=== PATIENT | female | born 2000 | race Caucasian/White ===

== ENCOUNTER 2022-06-07 12:29 | Inpatient (IN) | payer OTHER ==
[~2022-06-07] VITALS: Ht 162.6 cm; Wt 59.0 kg
[~2022-06-07 12:29] MED LIST: FEROSUL325 MG PO; PRENATAL FORMU1 EACH PO
[2022-06-07 13:20] LABS: HCT 37.7 % (37.0-47.0); MCHC 31.8 g/dL (32.0-36.0); MCV 81.8 fL (78.0-100.0); MPV 10.2 fL (6.0-9.5); RBC 4.61 M/uL (4.20-5.40); WBC 11.7 K/uL (4.0-10.5)
[2022-06-07 13:22] LABS: BILIRUBIN NEGATIVE (NEGATIVE); BLOOD 3+ Ery/uL (NEGATIVE); COLOR YELLOW (YELLOW); GLUCOSE (U) NORMAL (NORMAL); LEUKOCYTES 3+ Leu/uL (NEGATIVE); NITRITE NEGATIVE (NEGATIVE); PROTEIN NEGATIVE (NEGATIVE)
[2022-06-07 13:24] LABS: CLARITY HAZY (CLEAR)
[2022-06-07 13:26] LABS: AMPHETAMINES NEGATIVE (NEGATIVE); BARBITURATES NEGATIVE (NEGATIVE); ECSTASY (MDMA) NEGATIVE (NEGATIVE); MARIJUANA (THC) NEGATIVE (NEGATIVE); METHADONE NEGATIVE (NEGATIVE); OPIATES NEGATIVE (NEGATIVE); OXYCODONE NEGATIVE (NEGATIVE)
[2022-06-07 13:28] LABS: BACTERIA 4+; SQUAMOUS EPITHELIAL CELLS >50; URINARY WBC TNTC
[2022-06-07 17:06] LABS: ALBUMIN 2.8 g/dL (3.4-5.0); BILIRUBIN - TOTAL 0.4 mg/dL (0.2-1.0); BUN/CREAT RATIO (CALC) 17.6 RATIO; CREATININE 0.51 mg/dL (0.51-0.95); GLOBULIN (CALCULATION) 4.6 g/dL; POTASSIUM 3.7 mmol/L (3.5-5.1); TOTAL PROTEIN 7.4 g/dL (6.4-8.2); URIC ACID 5.3 mg/dL (2.6-6.2)
[2022-06-07 17:31] LABS: PROTEIN:CREATININE 0.27 RATIO; URINE CREATININE 119.46 mg/dL (29.00-226.00); URINE TOTAL PROTEIN-RANDOM 33.2 mg/dL (<11.9)
[2022-06-08 07:37] LABS: HCT 30.5 % (37.0-47.0); HGB 9.8 g/dL (12.5-16.0)
[2022-06-09] MEDS ORDERED: IBUPROFEN800 MG PO (08:22)
[2022-06-09] MEDS ORDERED: COLACE100 MG PO (08:23)
--- NOTE | 2022-06-09 08:26 | NUR ---
PER ESTHER MOREJON, [facility] [employer] SUPERVISOR, THE FOLLOWING OCCURRED: Note for Bebeto Harrell 12.04.00 mastic worker received consult for OB Patient. CM interviewed and provided resources. OB unit can provide car seat if the baby does go home. CM provided guidance on WIC and HANDS. CPS report was completed - below: [id number] Sponge Buffer received consult for lack of resources, no car seat, positive drug screen and hx of meth use and CPS for delivering Patient. CM interviewed patient who reported that she has a one and two year old that she lost custody of in [place] due to drugs and mental health - both children are with her mother. She has no care until the last two weeks of to which she tested positive for THC. She has nothing prepared for the to include no car seat, clothes or other necessities. She reports that she and her boyfriend live with one of her boyfriend's coworkers and that is where she plans to take the . The boyfriend has requested a paternity test. There is a high risk of abuse neglect due to recent hx of meth use and removal of other two children. Patient reports her mother's name is Melba Recinos [phone].
== END 2022-06-09 17:59 | disposition home or self-care (01) | DRG 806 ==
LOC: FOB 12:29
PROVIDERS: ADMIT Obstetrics & Gynecology
PROC: 10E0XZZ Delivery of Products of Conception, External Approach (ICD-10-PCS; principal; 2022-06-07)
DX: O99.02 Anemia complicating childbirth (principal); O99.324 Drug use complicating childbirth; Z37.0 Single live birth; O25.2 Malnutrition in childbirth; Z3A.39 39 weeks gestation of pregnancy; Z28.310 Unvaccinated for COVID-19; F12.90 Cannabis use, unspecified, uncomplicated; O99.334 Smoking (tobacco) complicating childbirth; F17.210 Nicotine dependence, cigarettes, uncomplicated
CPT/HCPCS: 36415; 80053; 80305; 81001; 82570; 83615; 84156; 84550; 85014; 85018; 86850; 86900; 86901; J2795; J7120